=== PATIENT | female | born 1970 | race Caucasian/White ===

== ENCOUNTER → 2017-07-12 | Outpatient (CLI) | payer BC ==
--- NOTE | 2017-07-12 16:29 | US ---
EXAMINATION TYPE: US venous doppler duplex LE RT DATE OF EXAM: 07/12/2017 3:50 PM COMPARISON: NONE CLINICAL HISTORY: I82.491 Deep venous thrombosis of the lower ext. Pt states right leg pain and swell ing, no known prior DVT SIDE PERFORMED: Right TECHNIQUE: The lower extremity deep venous system is examined utilizing real time linear array sonog óscar with graded compression, doppler sonography and color-flow sonography. VESSELS IMAGED: External Iliac Vein (EIV) Common Femoral Vein Deep Femoral Vein Greater Saphenous Vein * Femoral Vein Popliteal Vein Small Saphenous Vein * Proximal Calf Veins (* superficial vessels) Right Leg: Negative for DVT Results called to Dr. Ludwig at time of exam IMPRESSION: 1. No deep venous thrombosis right lower extremity.
== END | disposition home or self-care (01) ==
LOC: RADUSWWP 15:29
PROVIDERS: ATTEND Family Medicine
DX: I82.491 Acute embolism and thrombosis of other specified deep vein of right lower extremity (principal)

== ENCOUNTER → 2017-12-04 | Outpatient (CLI) | payer BC ==
--- NOTE | 2017-12-04 10:54 | XR ---
EXAMINATION TYPE: XR ribs RT DATE OF EXAM: 12/04/2017 COMPARISON: NONE HISTORY: Pain TECHNIQUE: 3 views submitted FINDINGS: There are chronic appearing deformities involving the right 10th, ninth, eighth and seventh ribs. Visualized lung arguelles clear. A deformity along the posterior margin the right 10th rib noted. IMPRESSION: Multiple chronic rib deformities with a findings suspicious for minimally displaced fract ure involving the posterior margin of the right 10th rib.
[2017-12-04 11:26] LABS: Basophils # (A) 0.1 k/uL (0-0.2); Basophils % (A) 1 %; Eosinophils # (A) 0.2 k/uL (0-0.7); Eosinophils % (A) 1 %; HCT 48.4 % (34.0-46.0); HGB 15.4 gm/dL (11.4-16.0); Lymphocytes # (A) 1.6 k/uL (1.0-4.8); Lymphocytes % (A) 14 %; MCH 29.8 pg (25.0-35.0); MCHC 31.7 g/dL (31.0-37.0); MCV 93.9 fL (80.0-100.0); Mean Platelet Volume 7.6; Monocytes # (A) 0.5 k/uL (0-1.0); Monocytes % (A) 4 %; Neutrophils # (A) 9.4 k/uL (1.3-7.7); Neutrophils % (A) 79 %; Platelet Count 191 k/uL (150-450); RBC 5.15 m/uL (3.80-5.40); RDW 12.9 % (11.5-15.5); WBC 11.9 k/uL (3.8-10.6)
[2017-12-04 11:41] LABS: ALT 39 U/L (9-52); AST 40 U/L (14-36); Albumin 4.7 g/dL (3.5-5.0); Alkaline Phosphatase 90 U/L (38-126); Amylase 47 U/L (30-110); Anion Gap 11 mmol/L; Blood Urea Nitrogen 12 mg/dL (7-17); Calcium 9.7 mg/dL (8.4-10.2); Carbon Dioxide 29 mmol/L (22-30); Chloride 101 mmol/L (98-107); Glucose 260 mg/dL (74-99); Lipase 32 U/L (23-300); Potassium 4.8 mmol/L (3.5-5.1); Sodium 141 mmol/L (137-145); Total Bilirubin 0.7 mg/dL (0.2-1.3); Total Protein 7.1 g/dL (6.3-8.2)
== END | disposition home or self-care (01) ==
LOC: RADXRMAIN 10:31
PROVIDERS: ATTEND Family Medicine
DX: M95.4 Acquired deformity of chest and rib (principal)
CPT/HCPCS: 36415; 80053; 82150; 83690; 85025

== ENCOUNTER → 2020-11-08 | Outpatient (CLI) | payer BC ==
--- NOTE | 2020-11-09 15:38 | US ---
EXAMINATION TYPE: US thyroid st tissue head/neck DATE OF EXAM: 11/08/2020 COMPARISON: NONE CLINICAL HISTORY: R59.1 Reactive lymphadenopathy. Palpable and painful area left neck x 1 week Left neck at patient's area of concern: 0.2 x 0.2 x 0.3cm left thyroid calcification . This is echoge laura and has posterior shadowing can be compatible with calcification. This correlates with the palpab le region of the thyroid. IMPRESSION: 1. Suspected calcification along the anterior left mid thyroid surface
== END | disposition home or self-care (01) ==
LOC: RADUSWWP 16:45
PROVIDERS: ATTEND Family Medicine
DX: R59.1 Generalized enlarged lymph nodes (principal)
CPT/HCPCS: 76536

== ENCOUNTER → 2020-12-07 | Outpatient (CLI) | payer BC ==
[2020-12-07 17:20] LABS: African American GFR (CKD) >90 (>60 ml/min/1.73 sqM); Blood Urea Nitrogen 13 mg/dL (7-17); Non-African American GFR(CKD) >90 (>60 ml/min/1.73 sqM)
--- NOTE | 2020-12-07 18:41 | CT ---
EXAMINATION TYPE: CT soft tissue neck w con DATE OF EXAM: 12/07/2020 COMPARISON: None HISTORY: Left sided neck pain and mass. BB placed on region of interest. CT DLP: 305 mGycm CONTRAST: CT scan of the neck is performed with IV Contrast, patient injected with 100ml mL of Isovue 300. Contrast enhanced CT of the neck was performed from the skull base through the lung apices. Left-sided BB marker corresponds to a prominent left external jugular vein. No distinct mass is appre ciated in this area. AIRWAY: The supraglottic, glottic, and subglottic portions of the airway appear patent and free of mass. SALIVARY GLANDS: The submandibular and parotid glands are free of mass or inflammatory process. THYROID GLAND: No nodules or masses seen. LYMPH NODES: No adenopathy seen greater than 1cm. LUNG APICES: There is biapical scarring noted. OTHER: Vascular structures are patent. No significant degenerative change of the cervical spine. N o abscess seen. IMPRESSION: Left-sided BB marker corresponds to a prominent left external jugular vein. No distinct mass is appre ciated in this area.
== END | disposition home or self-care (01) ==
LOC: RADCTMAIN 16:49
PROVIDERS: ATTEND Otolaryngology
DX: R22.1 Localized swelling, mass and lump, neck (principal); M54.2 Cervicalgia; Z88.2 Allergy status to sulfonamides
CPT/HCPCS: 82565; 84520; 70491; 36415; Q9967

== ENCOUNTER → 2021-11-01 | Outpatient (CLI) | payer BC ==
[2021-11-01 07:45] LABS: African American GFR (CKD) >90 (>60 ml/min/1.73 sqM); Blood Urea Nitrogen 13 mg/dL (7-17); Non-African American GFR(CKD) >90 (>60 ml/min/1.73 sqM)
--- NOTE | 2021-11-01 09:03 | CT ---
EXAMINATION TYPE: CT chest wo/w con DATE OF EXAM: 11/01/2021 COMPARISON: None HISTORY: Nonspecific abnormal findings of lung field CT DLP: 726 mGycm Automated exposure control for dose reduction was used. TECHNIQUE: CT scan of the chest is performed without and with IV Contrast, patient injected with 100 ml mL of Is ovue 300. MIP Images are created on CT scanner and reviewed. 3D reconstructed images are created on an independent workstation and reviewed. FINDINGS: LUNGS: Emphysematous changes are seen with bilateral apical pleural thickening and subsegmental areas of consolidation may represent scarring. There is a 2 mm nodule axial image 41 within the right midd le lobe. No consolidation or pleural effusion. MEDIASTINUM: There are no greater than 1 cm hilar or mediastinal lymph nodes. No pericardial effusi on is seen. Coronary artery calcification noted. OTHER: No additional significant abnormality is seen. IMPRESSION: 1. COPD with biapical pleural thickening and scarring. Findings most likely postinflammatory or basis of previous infectious etiology. Recommend short-term follow-up 3 month follow-up CT scan to confirm stability. 2. Pleural calcification noted correlate for asbestosis related disease. 2. There is a subcentimeter right middle lobe pulmonary nodule measuring approximately 2 to 3 mm. Fin ding 2 small to characterize and could be followed on short-term basis to confirm stability given the absence of prior exams.
== END | disposition home or self-care (01) ==
LOC: RADCTMAIN 06:43
PROVIDERS: ATTEND Family Medicine
DX: R59.0 Localized enlarged lymph nodes (principal); R91.8 Other nonspecific abnormal finding of lung field; J44.9 Chronic obstructive pulmonary disease, unspecified; J94.8 Other specified pleural conditions; R91.1 Solitary pulmonary nodule
CPT/HCPCS: 82565; 84520; 71270; 36415; Q9967

== ENCOUNTER → 2022-01-30 | Outpatient (CLI) | payer BC ==
[2022-01-30 16:59] LABS: African American GFR (CKD) >90 (>60 ml/min/1.73 sqM); Blood Urea Nitrogen 9 mg/dL (7-17); Non-African American GFR(CKD) >90 (>60 ml/min/1.73 sqM)
--- NOTE | 2022-01-30 21:03 | CT ---
EXAMINATION TYPE: CT chest w con DATE OF EXAM: 01/30/2022 COMPARISON: Chest CT November 01, 2021 HISTORY: Lung nodule, pt. unable to raise L arm above head. CT DLP: 356 mGycm. Automated Exposure Control for Dose Reduction was Utilized. TECHNIQUE: CT scan of the thorax is performed following with IV Contrast, patient injected with 100m l mL of Isovue 300. FINDINGS: LUNGS: Mild to moderate emphysematous changes greatest in the bilateral lung apices is redemonstrated . Mild to moderate focal parenchymal scarring both lung apices right greater than left is redemonstra chayito. Stable 2 mm incidental nodule in the right midlung laterally axial image 39. No new greater than 5 mm pulmonary nodules. No pleural effusion or pneumothorax seen bilaterally.. MEDIASTINUM: There are no greater than 1 cm hilar or mediastinal lymph nodes. No cardiomegaly or pe ricardial effusion is seen. OTHER: No additional significant abnormality is seen. IMPRESSION: Mild to moderate emphysematous change along with mild to moderate biapical scarring. No a cute pulmonary process. No significant change from recent CT.
== END | disposition home or self-care (01) ==
LOC: RADCTMAIN 15:31
PROVIDERS: ATTEND Internal Medicine Critical Care Medicine
DX: R91.1 Solitary pulmonary nodule (principal)
CPT/HCPCS: 82565; 84520; 71260; 36415; Q9967